=== PATIENT | female | born 1945 | race Caucasian/White ===

== ENCOUNTER 2016-10-04 09:17 | Day surgery (SDC) | payer MEDICARE ==
[~2016-10-04 09:17] MED LIST: Acetaminophen TAB* 325 MG PO PRN; Buffered Lidocaine 1% SYR 3ML* 3 ML/SYR SYRINGE INTRADERM ONE
[2016-10-04] MEDS ORDERED: Midazolam* 1 MG/ML 2 ML VIAL (2 MG) ONE (10:21)
[2016-10-04 11:34] VITALS: BP 112/78
[2016-10-04] MEDS ORDERED: Lidocaine 1% MPF* 2 ML VIAL ONE (13:35)
[2016-10-04] MEDS ORDERED: Neomycin/Polymy/Dex OPHTH.OIN* 3.5 GM ONE (13:35)
[2016-10-04] MEDS ORDERED: Flurbiprofen 0.03% OPTH.SOL* 2.5 ML BTL ONE (13:35)
[2016-10-04] MEDS ORDERED: Cyclopentolate 1% OPTH.SOL* 2 ML BTL ONE (13:35)
[2016-10-04] MEDS ORDERED: Tetracaine 0.5% OPTH.SOL 4 ML* 1 DROP BTL ONE (13:35)
[2016-10-04] MEDS ORDERED: Phenylephrine 2.5% OPTH.SOL* 2 ML BTL ONE (13:35)
[2016-10-04] MEDS ORDERED: Tropicamide 1% OPTH.SOL* BTL ONE (13:35)
--- NOTE | 2016-10-14 02:27 | OP ---
DATE OF OPERATION: 10/04/16 - [facility] DATE OF : 47 SURGEON: Eagle Crawley MD COMPUTER ENGINEERING TECHNOLOGIST: None. ANESTHESIA: Topical with intravenous sedation. PRE-OP DIAGNOSES: Cataract with astigmatism and glaucoma in the left eye. POST-OP DIAGNOSES: Cataract with astigmatism and glaucoma in the left eye. OPERATIVE PROCEDURE: Phacoemulsification and cataract extraction with posterior chamber Toric lens implant, left eye and iStent, left eye. COMPLICATIONS: None. BLOOD LOSS: None. DESCRIPTION OF PROCEDURE: The patient was seen preoperatively in the holding area where a marylou was made at the 6 o'clock position of the limbus of the left eye when she was in an upright position. The patient was subsequently brought to the operating room and given a small amount of intravenous sedation and a drop of Tetracaine in her left eye. The patient was prepped and draped in the usual sterile fashion for ophthalmic surgery. Attention was directed to the left eye where a speculum was placed. A paracentesis was created at the 4 o' clock position and 0.1 cc of 1% preservative-free lidocaine was injected into the anterior chamber followed by DisCoVisc. The eye was digitally stabilized while a 2.75 mm keratome was used to create a triplanar clear corneal incision at the 3 o'clock position. A continuous curvilinear capsulorrhexis was created with a cystotome and Utrata forceps. BSS on a cannula was used to hydrodissect the lens from the capsule. Phacoemulsification was performed in a divide-and- conquer technique to create four fragments, which were removed. Residual cortical material was removed with irrigation and aspiration. Healon was used to inflate the capsular bag. A Bridges marker and marking pen were used to marylou the 86-degree axis. An SN6AT9 9.5 diopter lens was folded and inserted into the capsular bag. A Sinskey hook was used to rotate it to proper axial alignment. Supplemental DisCoVisc was used to deepen the anterior chamber and to coat the surface of the cornea. The patient's head was turned away from the surgeon and the microscope was rotated toward the surgeon. A gonioprism was placed on the surface of the eye and an iStent was introduced into the anterior chamber. Under direct visualization, the iStent was introduced into the trabecular meshwork. The iStent inserted and gonioprism was removed. The patient's head and the microscope were returned to a neutral position. Irrigation and aspiration were performed to remove all viscoelastic from the eye. The lens was stabilized and positioned using a Sinskey hook for the paracentesis during this process. BSS on a cannula was then used to hydrate the corneal stroma. At the end of the case, the pupil was round. The lens was centered, stable, and axially aligned. The iStent was in place. The eye pressure appeared normal. The wound was water tight. Topical Maxitrol ointment was placed on the surface of the eye. The eye was closed, patched and shielded and the patient was sent to the recovery room in stable condition with postoperative instructions and followup appointment given. [id number]/[facility] #: [id number] STEPHAN
== END 2016-10-04 11:32 | disposition home or self-care (01) ==
LOC: OREAST 09:17
PROVIDERS: ATTEND Ophthalmology
DX: H25.812 Combined forms of age-related cataract, left eye (principal); H40.9 Unspecified glaucoma; Z87.891 Personal history of nicotine dependence
CPT/HCPCS: A9270-GY; C1783; J2250; V2787

== ENCOUNTER 2016-10-11 10:58 | Day surgery (SDC) | payer MEDICARE ==
[2016-10-11] MEDS ORDERED: Flurbiprofen 0.03% OPTH.SOL* 2.5 ML BTL ONE (11:27)
[2016-10-11] MEDS ORDERED: Lidocaine 1% MPF* 2 ML VIAL ONE (11:27)
[2016-10-11] MEDS ORDERED: Phenylephrine 2.5% OPTH.SOL* 2 ML BTL ONE (11:27)
[2016-10-11] MEDS ORDERED: Tetracaine 0.5% OPTH.SOL 4 ML* 1 DROP BTL ONE (11:27)
[2016-10-11] MEDS ORDERED: Neomycin/Polymy/Dex OPHTH.OIN* 3.5 GM ONE (11:27)
[2016-10-11] MEDS ORDERED: Tropicamide 1% OPTH.SOL* BTL ONE (11:27)
[2016-10-11] MEDS ORDERED: Cyclopentolate 1% OPTH.SOL* 2 ML BTL ONE (11:27)
[2016-10-11] MEDS ORDERED: Midazolam* 1 MG/ML 2 ML VIAL (2 MG) ONE (11:45)
[2016-10-11] MEDS ORDERED: fentaNYL* 50 MCG/ML 2 ML VIAL (100 MCG VIAL) ONE (11:45)
[2016-10-11 12:53] VITALS: BP 124/80
--- NOTE | 2016-10-11 23:00 | OP ---
OPERATIVE REPORT: DATE OF OPERATION: 10/11/16 DATE OF : 47 SURGEON: Eagle Crawley MD. BILINGUAL TEACHER ASSISTANT: None. ANESTHESIA: Topical with intravenous sedation. 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 POST-OP DIAGNOSES: Cataract, astigmatism and glaucoma in the right eye. OPERATIVE PROCEDURE: Phacoemulsification and cataract extraction with Toric intraocular lens and iS tent, right eye. COMPLICATIONS: None. BLOOD LOSS: None. OPERATIVE FINDINGS: The patient was seen preoperatively in the holding area where she was placed in upright position and a marylou was made at the 6 o'clock position of the limbus of the right eye. The patient was subsequently brought to the operating room and given a small amount of sedation. A quinton p of Tetracaine was placed in the right eye. The patient was prepped and draped in the usual steril e fashion for ophthalmic surgery and attention was directed to the right eye where a speculum was pl aced. A paracentesis was created at the 11 o'clock position and 0.1 cc of 1% preservative-free lido george was injected into the anterior chamber followed by DisCoVisc. The eye was digitally stabilize d while a 2.75 mm keratome was used to create a triplanar clear corneal incision at the 9 o'clock po sition. A continuous curvilinear capsulorrhexis was created with a cystotome and Utrata forceps. B SS on a cannula was used to hydrodissect the lens from the capsule. Phacoemulsification was perform ed in a zxebfc-zil-epesnwm technique to create 4 fragments which were removed. Residual cortical ma terial was removed with irrigation and aspiration. Healon was used to inflate the capsular bag. An SN6AT8 lens was folded and inserted into the capsular bag. It was dialed to the appropriate axial a lignment, which was 90 degrees using a Sinskey hook. A Bridges marker and marking pen were used to d elineate the 90-degree axis, which was the same as the 6 o'clock position marylou. The instrument was removed from the eye. The patient's head was rotated away from the surgeon and the microscope was t urned toward the surgeon. The anterior chamber was further inflated with DisCoVisc and the surface of the cornea received some DisCoVisc. A gonioprism was placed on the surface of the eye and, under direct visualization, an iStent was placed into the trabecular meshwork. The iStent telephone clerks supervisor and g onioprism were removed. The patient's head and the microscope were returned to a neutral position. Irrigation and aspiration were performed to remove viscoelastic from the eye while the Sinskey hook remained in the paracentesis to stabilize the lens position. After the removal of the Sinskey hook , the lens remained in appropriate position. BSS on a cannula was used to hydrate the corneal dez a and seal the wound. At the end of the case, the pupil was round. The lens was centered, stable, and axially aligned. The eye pressure appeared normal. The iStent was in place and the wound was w ater tight. Topical Maxitrol ointment was placed on the surface of the eye. The eye was closed, pa tched and shielded and the patient was sent to the recovery room in stable condition with postoperat rickey instructions and followup appointment given. [id number]/[facility] #: [id number]
== END 2016-10-11 12:57 | disposition home or self-care (01) ==
LOC: OREAST 10:58
PROVIDERS: ATTEND Ophthalmology
DX: H25.811 Combined forms of age-related cataract, right eye (principal); H40.9 Unspecified glaucoma; Z87.891 Personal history of nicotine dependence
CPT/HCPCS: A9270-GY; C1783; J2250; J3010; V2787

== ENCOUNTER 2021-03-05 07:09 | Inpatient (IN) ==
[~2021-03-05 07:09] MED LIST changes: -Acetaminophen TAB* 325 MG PO PRN; -Buffered Lidocaine 1% SYR 3ML* 3 ML/SYR SYRINGE INTRADERM ONE; +Buffered Lidocaine 1% SYRIN 1 ml INTRADERM ONE; +Dexamethasone IV 4 MG/ML VIAL 1 ml VIAL IV SLOW PU ONE; +Famotidine IV 10 MG/ML 2 ml VIAL (20 mg) IV ONE; +Lactated Ringers 1000 ml BAG 1,000 ML IV SCH
[2021-03-05] MEDS ORDERED: ceFAZolin 2 GM in NS PREMIX 2 GM/100 ML BAG IVPB ONE (07:24)
[2021-03-05] MEDS ORDERED: Buffered Lidocaine 1% SYRIN 1 ml INTRADERM ONE (07:24)
[2021-03-05] MEDS ORDERED: Famotidine IV 10 MG/ML 2 ml VIAL (20 mg) ONE (07:24)
[2021-03-05] MEDS ORDERED: Dexamethasone IV 4 MG/ML VIAL 1 ml VIAL ONE (07:24)
[2021-03-05] MEDS ORDERED: ROPIVACAINE 5 MG/ML 30 ML BTL (0.5%) ONE (08:32)
[2021-03-05] MEDS ORDERED: Midazolam 5 mg/5 ml VIAL 1 mg/ml 5 ml VIAL (5 mg) ONE (08:38)
[2021-03-05] MEDS ORDERED: Phenylephrine IV 10 MG/ML 1 ml VIAL ONE (08:43)
[2021-03-05] MEDS ORDERED: Lidocaine 2% PF 5 ML VIAL ONE (08:43)
[2021-03-05] MEDS ORDERED: fentaNYL 100 mcg/2 ml 50 MCG/ML VIAL IV PRN (09:03)
[2021-03-05] MEDS ORDERED: Morphine 4 MG/ML VIAL (1 ml) IV PRN (09:03)
[2021-03-05] MEDS ORDERED: Prochlorperazine 5 mg/ml 2 ml VIAL (10 mg) IV PRN (09:03)
[2021-03-05] MEDS ORDERED: HYDROcodone/ACETAMIN 5/325 mg TAB PO PRN (09:03)
[2021-03-05] MEDS ORDERED: Naloxone 0.4 mg VIAL 0.4 mg/ml 1 ml VIAL IV PRN (09:03)
[2021-03-05] MEDS ORDERED: EPHEDrine (Pressors) 50 MG/ML VIAL ONE (10:16)
[2021-03-05] MEDS ORDERED: diPHENhydraMINE IV 50 MG/ML 1 ml VIAL (BENADRYL) IV PRN (10:50)
[2021-03-05] MEDS ORDERED: Ondansetron 4 mg VIAL 2 MG/ML 2 ml VIAL IV PRN (10:50)
[2021-03-05] MEDS ORDERED: Lactulose 30 ml UDC PO PRN (10:50)
[2021-03-05] MEDS ORDERED: Ondansetron ODT 4 mg TAB 4 MG TAB PO PRN (10:50)
[2021-03-05] MEDS ORDERED: Morphine 2 MG/ML SYRINGE IV PRN (10:50)
[2021-03-05] MEDS ORDERED: Magnesium Hydroxide LIQ 30 ML UDC PO PRN (10:50)
[2021-03-05] MEDS ORDERED: diPHENhydraMINE 25 mg TAB PO PRN (10:50)
[2021-03-05] MEDS: Lactated Ringers 1000 ml BAG 1,000 ML IV SCH (14:18)
[2021-03-05] MEDS: ceFAZolin 1 GM ADVAN 1 GM in NS 0.9% 50 ML 50 ML IVPB SCH (20:21)
[2021-03-05] MEDS: Magnesium Hydroxide LIQ 30 ML UDC PO SCH (20:28)
[2021-03-05] MEDS ORDERED: Latanoprost 0.005% 2.5 ml BTL BOTH EYES SCH (21:00)
[2021-03-06] MEDS: ceFAZolin 1 GM ADVAN 1 GM in NS 0.9% 50 ML 50 ML IVPB SCH ×2 (03:28→10:52)
[2021-03-06 05:51] LABS: Hematocrit 27 % (35-47); Hemoglobin 9.7 g/dL (12.0-16.0); Mean Platelet Volume 8.2 fL (7.4-10.4); Platelet Count 153 10^3/uL (150-450)
[2021-03-06 06:08] LABS: Calcium 8.8 mg/dL (8.6-10.3); Potassium 3.8 mmol/L (3.5-5.0)
[2021-03-06] MEDS: Lactated Ringers 1000 ml BAG 1,000 ML IV SCH (06:27)
[2021-03-06] MEDS ORDERED: Lactated Ringers 1000 ml BAG 1,000 ML IV ONE (06:58)
[2021-03-06 07:23] LABS: ABS Lymphocytes 1.3 10^3/ul (1.0-4.8); ABS Monocytes 0.4 10^3/ul (0-0.8); ABS Neutrophils 3.1 10^3/ul (1.5-7.7); Eosinophil % 0.3 %; Hematocrit 28 % (35-47); Hemoglobin 9.8 g/dL (12.0-16.0); Lymphocyte % 26.7 %; Mean Corpuscular HGB Conc 35 g/dL (31-36); Mean Corpuscular Hemoglobin 33 pg (27-31); Mean Corpuscular Volume 94 fL (80-97); Mean Platelet Volume 8.5 fL (7.4-10.4); Platelet Count 156 10^3/uL (150-450); Red Blood Count 2.99 10^6 /uL (3.70-4.87); Red Cell Distribution Width 13 % (10-15); White Blood Count 4.9 10^3/uL (3.5-10.8)
[2021-03-06 07:40] LABS: Albumin 3.3 g/dL (3.2-5.2); Albumin/Globulin Ratio 1.7 (1-3); Calcium 8.8 mg/dL (8.6-10.3); Globulin 1.9 g/dL (2-4); Magnesium 1.6 mg/dL (1.9-2.7); Potassium 3.6 mmol/L (3.5-5.0); Total Bilirubin 0.5 mg/dL (0.2-1.0); Total Protein 5.2 g/dL (6.4-8.9)
[2021-03-06 07:48] VITALS: BP 101/67
[2021-03-06] MEDS ORDERED: Flu vaccine *QUAD* 2021-22* 0.5 ML SYRINGE IM ONE (09:00)
[2021-03-06] MEDS ORDERED: Vitamin THERAPEUTIC TAB PO SCH (09:00)
[2021-03-06] MEDS: Magnesium Hydroxide LIQ 30 ML UDC PO SCH (09:19)
== END 2021-03-06 12:00 | disposition home or self-care (01) | DRG 470 ==
LOC: AA 07:09 → SSU 13:00
PROVIDERS: ADMIT Orthopaedic Surgery Adult Reconstructive Orthopaedic Surgery; ATTEND Orthopaedic Surgery Adult Reconstructive Orthopaedic Surgery